=== PATIENT | male | born 1985 ===

== ENCOUNTER 2022-04-22 21:57 | Emergency (ER) | payer OTHER ==
[~2022-04-22] VITALS: Ht 180.3 cm; Wt 83.0 kg
[2022-04-22] MEDS ORDERED: TYLENOL (22:24)
[2022-04-23] MEDS ORDERED: PEPCID AC20 MG PO (06:26)
[2022-04-23] MEDS ORDERED: LEVSIN0.125 MG PO (06:26)
== END 2022-04-23 06:33 | disposition home or self-care (01) ==
LOC: ER 21:57
DX: R10.11 Right upper quadrant pain (principal); N20.0 Calculus of kidney; N28.1 Cyst of kidney, acquired